=== PATIENT | female | born 1990 | race Two or more races ===

== ENCOUNTER 2021-04-05 13:43 | Emergency (ER) | payer SELFPAY ==
--- NOTE | 2021-04-05 15:39 | EDM.PDOC ---
ED HPI GENERAL MEDICAL PROBLEM - General Chief Complaint: General Stated Complaint: COVID POSITIVE Time Seen by Provider: 04/05/21 15:39 Source of Information: Reports: Patient, RN Notes Reviewed History Limitations: Reports: No Limitations - History of Present Illness INITIAL COMMENTS - FREE TEXT/NARRATIVE: Renea presents today for complaints of fever, body aches, cough, loss of smell and taste, rash to bilateral arms and headache with nausea and diarrhea since 03/30/2021. She was tested positive for COVID on 04/01/2021. She denies use of OTC medications or treatments for her symptoms. She is unvaccinated for COVID. - Related Data Allergies Allergy/AdvReac Type Severity Reaction Status Date / Time No Known Allergies Allergy Verified 04/05/21 15:00 Home Meds: Home Meds NK [No Known Home Meds] 04/05/21 [History] Past Medical History HEENT History: Reports: Impaired Vision [employer] History: Reports: Psychiatric History: Reports: Anxiety Endocrine/Metabolic History: Reports: Obesity/BMI 30+ Hematologic History: Reports: Anemia - Infectious Disease History Infectious Disease History: Reports: Chicken Pox - Past Surgical History Female Surgical History: Reports: Section Social & Family History - Tobacco Use Tobacco Use Status *Q: Never Tobacco User ED ROS GENERAL - Review of Systems Review Of Systems: See Below Constitutional: Reports: Fever, Chills, Malaise, Decreased Appetite. Denies: Weakness, Fatigue, Night Sweats, Diaphoresis, Weight Loss, Weight Gain HEENT: Reports: No Symptoms Respiratory: Reports: Cough. Denies: Shortness of Breath, Wheezing, Pleuritic Chest Pain, Sputum, Hemoptysis Cardiovascular: Reports: No Symptoms Endocrine: Reports: No Symptoms GI/Abdominal: Reports: Diarrhea, Nausea. Denies: Abdominal Pain, Anorexia, Black Stool, Bloody Stool, Constipation, Decreased Appetite, Difficulty Swallowing, Distension, Flatus, Hematemesis, Hematochezia, Melena, Vomiting : Reports: No Symptoms Musculoskeletal: Reports: Other (generalized body and muscle aches) Skin: Reports: No Symptoms Neurological: Reports: No Symptoms Psychiatric: Reports: No Symptoms Hematologic/Lymphatic: Reports: No Symptoms Immunologic: Reports: No Symptoms ED EXAM, GENERAL - Physical Exam Exam: See Below General Appearance: Alert, WD/WN, No Apparent Distress Eye Exam: Bilateral Eye: Normal Inspection, PERRL Ears: Normal External Exam, Normal Canal, Hearing Grossly Normal, Normal TMs Nose: Normal Inspection, Normal Mucosa, No Blood Throat/Mouth: Normal Inspection, Normal Lips, Normal Teeth, Normal Gums, Normal Oropharynx, Normal Voice, No Airway Compromise Head: Atraumatic, Normocephalic Neck: Normal Inspection, Supple, Non-Tender, Full Range of Motion. No: Lymphadenopathy (R), Lymphadenopathy (L) Respiratory/Chest: No Respiratory Distress, Lungs Clear, Normal Breath Sounds, No Accessory Muscle Use, Chest Non-Tender. No: Crackles, Rales, Rhonchi, Wheezing, Stridor, Retractions, Splinting Cardiovascular: Normal Peripheral Pulses, Regular Rate, Rhythm, No Edema, No Gallop, No Murmur, No Rub Peripheral Pulses: 4+: Radial (L), Radial (R) GI/Abdominal: Normal Bowel Sounds, Soft, Non-Tender, No Organomegaly, No Distention, No Mass. No: Guarding, Rigid, Rebound, Tender Back Exam: Normal Inspection, Full Range of Motion. No: CVA Tenderness (R), CVA Tenderness (L) Extremities: Normal Inspection, Normal Range of Motion, Non-Tender, No Pedal Edema, Normal Capillary Refill Neurological: Alert, Oriented, Normal Cognition, Normal Gait, Normal Reflexes, No Motor/Sensory Deficits Psychiatric: Normal Affect, Normal Mood Skin Exam: Warm, Dry, Intact, Normal Color, No Rash Lymphatic: No Adenopathy Course - Vital Signs Last Recorded V/S: Last Vital Signs Temp 36.8 C 04/05/21 15:03 Pulse 140 H 04/05/21 15:03 Resp 28 H 04/05/21 15:03 BP 141/93 H 04/05/21 15:03 Pulse Ox 96 04/05/21 15:03 - Orders/Labs/Meds Meds: Medications Discontinued Medications Generic Name Dose Route Start Last Admin Trade Name Freq PRN Reason Stop Dose Admin Ketorolac Tromethamine 30 mg 04/05/21 15:59 04/05/21 16:31 Ketorolac 30 Mg/Ml Sdv IM 04/05/21 16:00 30 mg ONETIME ONE Administration - Re-Assessments/Exams Free Text/Narrative Re-Assessment/Exam: Patient evaluation reviewed with her, no acute findings and vital signs stable. Education provided on care of COVID at home, use of monoclonal antibody therapy. She will telephone if she would like antibody therapy as she verbalized concerns of cost due to not having any medical insurance. All her questions were answered, she is in agreement with plan. Departure - Departure Time of Disposition: 16:25 Disposition: Home, Self-Care 01 Condition: Good Clinical Impression: COVID-19 - Discharge Information Instructions: COVID-19: What to Do If You Are Sick- [facility] (08/13/2020) Referrals: Promise Larsen CNM [Primary Care Provider] - Forms: ED Department Discharge Additional Instructions: You have been evaluated and treated for COVID. You were given a toradol 30mg IM injection for pain/body aches. You can take: Acetaminophen cold medication (tylenol cold day/night). Take daytime two pills in morning and afternoon. Take nighttime pills at bedtime. Ibuprofen 800mg by mouth with food morning, afternoon and before bed as needed for pain. Cetirizine (zyrtec) one tablet every morning to help with congestion. Robitussin cough medication as needed for cough. Eat protein, drink water and gatorade per normal. Obtain a pulse oximeter to monitor your oxygen saturation, if this is below 90% despite slow deep breathing then come in to the emergency room for evaluation. Follow up with your primary provider in 14 days for a recheck. Return as needed or for issues/concerns. You can have monoclonal antibody therapy as an outpatient - if you desire to do this please telephone your primary provider to help set his up as an outpatient procedure. This has to be done within the first 10 days of your symptoms. Sepsis Event Note (ED) - Focused Exam Vital Signs: Vital Signs Temp Pulse Resp BP Pulse Ox 04/05/21 15:03 36.8 C 140 H 28 H 141/93 H 96 - Assessment/Plan Assessment:: COVID-19 Plan: Patient evaluated and treated for COVID. She was given a toradol 30mg IM injection for pain/body aches. She can take: Acetaminophen cold medication (tylenol cold day/night). Take daytime two pills in morning and afternoon. Take nighttime pills at bedtime. Ibuprofen 800mg by mouth with food morning, afternoon and before bed as needed for pain. Cetirizine (zyrtec) one tablet every morning to help with congestion. Robitussin cough medication as needed for cough. Eat protein, drink water and gatorade per normal. Obtain a pulse oximeter to monitor oxygen saturation, if this is below 90% despite slow deep breathing then come in to the emergency room for evaluation. Follow up with primary provider in 14 days for a recheck. Return as needed or for issues/concerns. She can have monoclonal antibody therapy as an outpatient - if she desire to do this, she needs to telephone her primary provider to help set this up as an outpatient procedure. This has to be done within the first 10 days of symptoms.
[2021-04-05] MEDS ORDERED: Ketorolac 30 MG/ML SDV IM ONE (15:59)
== END 2021-04-05 16:50 | disposition home or self-care (01) ==
LOC: JP.ED 13:43
DX: U07.1 COVID-19 (principal); E66.9 Obesity, unspecified; Z68.30 Body mass index [BMI] 30.0-30.9, adult
CPT/HCPCS: 96372; 99283; J1885

== ENCOUNTER 2022-06-18 09:50 | Emergency (ER) | payer MEDICAID ==
[2022-06-18] MEDS ORDERED: LORazepam 1 MG Tab PO ONE (11:05)
[2022-06-18 11:14] LABS: CORONAVIRUS COVID-19 NAA NEGATIVE (NEGATIVE)
== END 2022-06-18 11:28 | disposition home or self-care (01) ==
LOC: JP.ED 09:50
DX: R07.89 Other chest pain (principal); F41.9 Anxiety disorder, unspecified; E66.9 Obesity, unspecified; Z68.39 Body mass index [BMI] 39.0-39.9, adult; Z87.891 Personal history of nicotine dependence; Z20.822 Contact with and (suspected) exposure to COVID-19
CPT/HCPCS: 0241U; 71046; 71046-26; 99283; 99285; A9270-GY